=== PATIENT | female | born 1970 | race Caucasian/White ===

== ENCOUNTER 2017-02-24 09:58 | Emergency (ER) | payer MEDICARE | END 2017-02-24 12:33 | disposition home or self-care (01) | LOC: D.ER 09:58 | DX: M79.602 Pain in left arm (principal); Y04.2XXA Assault by strike against or bumped into by another person, initial encounter; Y93.89 Activity, other specified; Y92.89 Other specified places as the place of occurrence of the external cause; F17.200 Nicotine dependence, unspecified, uncomplicated ==